=== PATIENT | female | born 1955 | race Hispanic/Latino ===

== ENCOUNTER 2017-06-26 14:50 | Outpatient (CLI) | payer OTHER | END 2017-06-26 14:51 | disposition home or self-care (01) | LOC: DTY/OP 14:50 | PROVIDERS: ATTEND Family Medicine | DX: E11.65 Type 2 diabetes mellitus with hyperglycemia (principal) | CPT/HCPCS: 97802 ==

== ENCOUNTER 2018-06-05 15:19 | Outpatient (CLI) | payer OTHER | END 2018-06-05 15:20 | disposition home or self-care (01) | LOC: BICMAMMO 15:19 | PROVIDERS: ATTEND Family Medicine | DX: Z12.31 Encounter for screening mammogram for malignant neoplasm of breast (principal) | CPT/HCPCS: 77063; 77067 ==

== ENCOUNTER 2019-06-08 14:57 | Outpatient (CLI) | payer OTHER ==
--- NOTE | 2019-06-08 15:49 | MMO ---
Bilateral MAMMO Bilat Screen [facility]. CLINICAL HISTORY: Patient is 63 years old and is seen for screening. The patient has no family history of breast cancer. The patient has no personal history of cancer. VIEWS: The views performed were: bilateral craniocaudal with tomosynthesis and bilateral mediolateral oblique with tomosynthesis. FILMS COMPARED: The present examination has been compared to prior imaging studies performed at [facility] on 05/02/2011, 05/04/2012, 05/05/2013 and 06/05/2018. This study has been interpreted with the assistance of computer-aided detection. MAMMOGRAM FINDINGS: There are scattered fibroglandular densities. There are benign appearing calcifications seen in both breasts. There are no suspicious masses, suspicious calcifications, or new areas of architectural distortion. IMPRESSION: THERE IS NO MAMMOGRAPHIC EVIDENCE OF MALIGNANCY. A ROUTINE FOLLOW-UP MAMMOGRAM IN 1 YEAR IS RECOMMENDED. THE RESULTS OF THIS EXAM WERE SENT TO THE PATIENT. ACR BI-RADS Category 2 - Benign finding MAMMOGRAPHY NOTE: 1. A negative mammogram report should not delay a biopsy if a dominant of clinically suspicious mass is present. 2. Approximately 10% to 15% of breast cancers are not detected by mammography. 3. Adenosis and dense breasts may obscure an underlying neoplasm. Reported by: MARLYN MONTOYA MD Electonically Signed: [id number]
== END 2019-06-08 14:58 | disposition home or self-care (01) ==
LOC: BICMAMMO 14:57
PROVIDERS: ATTEND Family Medicine
DX: Z12.31 Encounter for screening mammogram for malignant neoplasm of breast (principal)
CPT/HCPCS: 77063; 77067

== ENCOUNTER 2019-09-09 11:40 | Day surgery (SDC) | payer OTHER ==
[2019-09-08 11:29] VITALS: BMI 29.7
[2019-09-09] MEDS ORDERED: PROPOFOL 200 MG/20 ML VIAL ONE (13:29)
--- NOTE | 2019-09-09 14:57 | OP ---
DATE OF PROCEDURE: 09/09/2019 PROCEDURE PERFORMED: Colonoscopy with biopsy and snare polypectomy. PREPROCEDURE DIAGNOSES: 1. High-risk colon cancer screening. 2. Family history of colon cancer in her father at age 63. POSTPROCEDURE DIAGNOSES: 1. Exam to cecum; good bowel preparation. 2. [id number] sigmoid diverticulosis without evidence of diverticulitis. 3. Diminutive sessile polyp in the ascending colon, 3 mm in diameter, excised by cold snare technique, but not retrieved for histology. 4. Three small sigmoid polyps, removed by cold snare technique and one polyp by biopsy forceps. 5. Diminutive polyp in the rectosigmoid colon, removed by cold biopsy forceps. 6. Small internal hemorrhoids. 7. Otherwise, normal colonoscopy. DESCRIPTION OF PROCEDURE: Written informed consent was obtained. The patient was brought to the endoscopy suite. Total intravenous anesthesia was administered by Dr. Prince Berger. The patient was placed in the left lateral decubitus position. A digital rectal exam was performed, which revealed small external tags. A Pentax video colonoscope was inserted through the anal canal and advanced under direct visualization to the cecum. Position in the cecum was verified by clear identification of the appendiceal orifice and the ileocecal valve. The quality of the bowel preparation was good. Each colon segment was examined carefully as the colonoscope was slowly withdrawn from the cecum. Vascular pattern and haustral folds appeared normal. In the mid ascending colon, a 3 to 4 mm diminutive sessile polyp was identified and removed by cold snare polypectomy. The tissue was not retrieved for histology. In the sigmoid colon, 2 sessile polyps measuring 3 mm and 7 mm in diameter were removed by cold snare technique and submitted to Pathology. A third smaller polyp, approximately 2 to 3 mm in diameter, was also identified in the sigmoid colon and excised by cold forceps. All of the sigmoid polyp tissue was submitted to Pathology. Another diminutive sessile polyp in the rectosigmoid colon, approximately 2 to 3 mm in diameter, was excised from the rectosigmoid colon and submitted for pathology. A retroflexed exam in the rectum demonstrated small internal hemorrhoids that were not actively bleeding. The colon was decompressed as the colonoscope was removed from the patient. She was transferred to the Day Stay surgery area for postprocedure monitoring. There were no immediate complications. RECOMMENDATIONS: 1. Await pathology results. 2. Ask the patient to call me in 1 week for pathology results. 3. Repeat colonoscopy in 3 years. 4. High-fiber diet. 5. Follow up in GI Clinic as needed. Job ID: [id number]
== END 2019-09-09 14:50 | disposition home or self-care (01) ==
LOC: SDC 11:40
PROVIDERS: ATTEND Internal Medicine Gastroenterology
PROC: 0DBK8ZZ Excision of Ascending Colon, Via Natural or Artificial Opening Endoscopic (ICD-10-PCS; principal; 2019-09-09)
PROC: 0DBN8ZX Excision of Sigmoid Colon, Via Natural or Artificial Opening Endoscopic, Diagnostic (ICD-10-PCS; principal; 2019-09-09)
DX: Z12.11 Encounter for screening for malignant neoplasm of colon (principal); D12.5 Benign neoplasm of sigmoid colon; K57.30 Diverticulosis of large intestine without perforation or abscess without bleeding; K64.8 Other hemorrhoids; Z80.0 Family history of malignant neoplasm of digestive organs; Z88.0 Allergy status to penicillin; Z91.018 Allergy to other foods
CPT/HCPCS: 88305; J2704

== ENCOUNTER 2019-10-06 16:30 | Outpatient (CLI) | payer OTHER ==
--- NOTE | 2019-10-06 16:54 | RAD ---
RADIOGRAPH CHEST 2 VIEWS: 10/06/19 HISTORY: 64-year-old female with cough, fever, and chest pain. FINDINGS: The thoracic aorta is tortuous and ectatic. There is no evidence of air space density, pneumothorax, or pulmonary edema. There is no cardiomegaly or pleural effusion. IMPRESSION: 1) No acute cardiopulmonary findings. 2) Ectasia of thoracic aorta. jn [] POS: [facility]
== END 2019-10-06 16:31 | disposition home or self-care (01) ==
LOC: BICRAD 16:30
PROVIDERS: ATTEND Family Medicine
DX: J06.9 Acute upper respiratory infection, unspecified (principal); R05 Cough; I77.810 Thoracic aortic ectasia
CPT/HCPCS: 36415; 71046; 80048; 83036; 85025

== ENCOUNTER 2019-10-18 01:29 | Emergency (ER) | payer OTHER ==
[2019-10-18 02:49] LABS: Hemoglobin 10.8 g/dL (12.0-16.0); Mean Corpuscular HGB CONC 32.8 g/dL (32.0-36.0); Mean Corpuscular Hemoglobin 27.4 pg (27.0-31.0); Mean Corpuscular Volume 83.5 fL (78.0-98.0); Mean Platelet Volume 7.4 fL (7.4-10.4); Platelet Count 304 thou/uL (130-400); RBC Distribution Width 12.4 % (11.5-14.5); Red Blood Cell (RBC) Count 3.94 mill/uL (4.20-5.40); White Blood Cell (WBC) Count 23.2 thou/uL (4.8-10.8)
[2019-10-18 03:04] LABS: Bacteria/HPF None Seen HPF (None Seen); Bilirubin Negative (Negative); Blood, Urine Negative (Negative); Clarity Clear (Clear); Glucose, Urine (Dipstick) Normal (Negative); Leukocyte 500 Leu/uL (Negative); Nitrite Negative (Negative); Protein, Urine (Dipstick) Negative (Neg-Trace); RBC/HPF 0-3 HPF (0-3); Urobilinogen Normal mg/dL (Less than 2); WBC/HPF 21-50 HPF (0-3)
[2019-10-18 03:07] LABS: Band 2 % (5-11); Lymphocytes 4 % (21-51); MDiff Complete? YES; Monocytes 6 % (0-10); Neutrophil 88 % (42-75); Platelet Morphology Comment Appears Adequate
[2019-10-18 03:14] LABS: ALT (SGPT) 17 U/L (8-55); AST (SGOT) 21 U/L (5-34); Albumin 3.8 g/dL (3.4-4.8); Alkaline Phosphatase 60 U/L (40-110); Anion Gap 13 mmol/L (10-20); BUN (Urea Nitrogen) 29 mg/dL (9.8-20.1); Bilirubin, Total 0.5 mg/dL (0.2-1.2); Calc. Creatinine Clearance 0 mL/min (70-130); Carbon Dioxide 25 mmol/L (23-31); Chloride 99 mmol/L (98-107); Estimated GFR-MDRD 42; Globulin 3.4 g/dL (2.4-3.5); Glucose 210 mg/dL (80-115); Potassium 4.1 mmol/L (3.5-5.1); Protein, Total 7.2 g/dL (6.0-8.3); Sodium 133 mmol/L (136-145)
[2019-10-18] MEDS ORDERED: cefTRIAXone\\ROCEPHIN 2 GM VIAL ONE (03:33)
--- NOTE | 2019-10-18 08:04 | RAD ---
EXAM: Chest 2 views: HISTORY: Fever and fatigue COMPARISON: 10/06/2019 FINDINGS: There is a normal-sized cardiomediastinal silhouette. There is no evidence of consolidation, mass, or pleural effusion. Degenerative changes and scoliotic curvature the spine are seen. IMPRESSION: No evidence of acute cardiopulmonary disease
== END 2019-10-18 04:11 | disposition home or self-care (01) ==
LOC: ERS 01:29
DX: N39.0 Urinary tract infection, site not specified (principal); D72.829 Elevated white blood cell count, unspecified; M54.5 Low back pain; E11.9 Type 2 diabetes mellitus without complications; I10 Essential (primary) hypertension
CPT/HCPCS: 36415; 71046; 80053; 81003; 81015; 83605; 84443; 84484; 85025; 87040; 87086; 87804; 93005; J0696

== ENCOUNTER 2019-10-18 14:07 | Outpatient (CLI) | payer OTHER ==
--- NOTE | 2019-10-18 15:04 | ULT ---
Renal sonogram HISTORY: Renal failure. FINDINGS: The right kidney measures up to 10.8 cm. Echogenic focus at the inferior pole is estimated to 0.6 mm greatest diameter. No hydronephrosis. Left kidney is 11.1 cm. Normal appearance. No hydronephrosis. Urinary bladder is incompletely distended. No focal abnormalities. IMPRESSION: Small nonobstructing calculus inferior pole right kidney.
== END 2019-10-18 14:08 | disposition home or self-care (01) ==
LOC: BICULT 14:07
PROVIDERS: ATTEND Family Medicine
DX: N18.3 Chronic kidney disease, stage 3 (moderate) (principal); N20.0 Calculus of kidney
CPT/HCPCS: 36415; 71046; 76770; 80053; 81003; 81015; 83605; 84443; 84484; 85025; 87040; 87086; 87804; 93005; J0696

== ENCOUNTER 2020-05-24 08:35 | Outpatient (CLI) | payer OTHER ==
--- NOTE | 2020-05-24 10:10 | ULT ---
PELVIC ULTRASOUND INCLUDING TRANSABDOMINAL AND TRANSVAGINAL AND VASCULAR DUPLEX WITH COLOR AND SPECTR AL DOPPLER IMAGING: HISTORY: Postmenopausal bleeding. FINDINGS: Uterus measures 8.0 x 4.4 x 2.6 cm with a 0.3 cm endometrium. Right ovary 2.3 x 1.0 x 1.5 cm. Left ovary 1.8 x 1.5 x 1.0 cm. Two intrauterine fibroids, the largest measures 3.7 x 5.3 x 5.0 cm and the smaller one measuring 1.1 x 0.6 x 1.0 cm. IMPRESSION: Intrauterine fibroids up to 5.3 cm in size. POS: [facility]
== END 2020-05-24 08:36 | disposition home or self-care (01) ==
LOC: BICULT 08:35
PROVIDERS: ATTEND Family Medicine
DX: N95.0 Postmenopausal bleeding (principal); D25.9 Leiomyoma of uterus, unspecified
CPT/HCPCS: 76856

== ENCOUNTER 2020-06-12 14:48 | Outpatient (CLI) | payer OTHER ==
--- NOTE | 2020-06-12 16:39 | MMO ---
Bilateral MAMMO Bilat Screen [facility]. CLINICAL HISTORY: Patient is 64 years old and is seen for screening. The patient has no family history of breast cancer. The patient has no personal history of cancer. VIEWS: The views performed were: bilateral craniocaudal with tomosynthesis and bilateral mediolateral oblique with tomosynthesis. FILMS COMPARED: The present examination has been compared to prior imaging studies performed at [facility] on 05/04/2012, 05/05/2013, 06/05/2018 and 06/08/2019. This study has been interpreted with the assistance of computer-aided detection. MAMMOGRAM FINDINGS: There are scattered fibroglandular densities. Benign calcifications are noted bilaterally. There are no suspicious masses, suspicious calcifications, or new areas of architectural distortion. IMPRESSION: THERE IS NO MAMMOGRAPHIC EVIDENCE OF MALIGNANCY. A ROUTINE FOLLOW-UP MAMMOGRAM IN 1 YEAR IS RECOMMENDED. THE RESULTS OF THIS EXAM WERE SENT TO THE PATIENT. ACR BI-RADS Category 2 - Benign finding MAMMOGRAPHY NOTE: 1. A negative mammogram report should not delay a biopsy if a dominant of clinically suspicious mass is present. 2. Approximately 10% to 15% of breast cancers are not detected by mammography. 3. Adenosis and dense breasts may obscure an underlying neoplasm. Reported by: NORMA CULLEN MD Electonically Signed: [id number]
== END 2020-06-12 14:49 | disposition home or self-care (01) ==
LOC: BICMAMMO 14:48
PROVIDERS: ATTEND Family Medicine
DX: Z12.31 Encounter for screening mammogram for malignant neoplasm of breast (principal)
CPT/HCPCS: 77063; 77067

== ENCOUNTER 2021-06-20 12:05 | Outpatient (CLI) | payer OTHER | END 2021-06-20 12:06 | disposition home or self-care (01) | LOC: BICMAMMO 12:05 | PROVIDERS: ATTEND Family Medicine | DX: Z12.31 Encounter for screening mammogram for malignant neoplasm of breast (principal) | CPT/HCPCS: 77063; 77067 ==

== ENCOUNTER 2022-07-19 11:12 | Outpatient (CLI) | payer BC | END 2022-07-19 11:13 | disposition home or self-care (01) | LOC: BICMAMMO 11:12 | PROVIDERS: ATTEND Family Medicine | DX: Z12.31 Encounter for screening mammogram for malignant neoplasm of breast (principal) | CPT/HCPCS: 77063; 77067 ==

== ENCOUNTER 2023-09-03 10:34 | Outpatient (CLI) | payer BC | END 2023-09-03 10:35 | disposition home or self-care (01) | LOC: BICMAMMO 10:34 | PROVIDERS: ATTEND Family Medicine | DX: Z12.31 Encounter for screening mammogram for malignant neoplasm of breast (principal) | CPT/HCPCS: 77063; 77067 ==

== ENCOUNTER 2024-09-08 13:38 | Outpatient (CLI) | payer MEDICARE, BC | END 2024-09-08 13:39 | disposition home or self-care (01) | LOC: BICMAMMO 13:38 | PROVIDERS: ATTEND Family Medicine | DX: Z12.31 Encounter for screening mammogram for malignant neoplasm of breast (principal) | CPT/HCPCS: 77063; 77067 ==

== ENCOUNTER 2025-09-12 10:50 | Outpatient (CLI) | payer MEDICARE, BC | END 2025-09-12 10:51 | disposition home or self-care (01) | LOC: BICMAMMO 10:50 | PROVIDERS: ATTEND Family Medicine | DX: Z12.31 Encounter for screening mammogram for malignant neoplasm of breast (principal) | CPT/HCPCS: 77063; 77067 ==